=== PATIENT | male | born 1970 | race African-American/Black ===

== ENCOUNTER 2017-07-15 12:59 | Emergency (ER) | payer OTHER ==
[2017-07-15] MEDS ORDERED: Acetaminophen TAB* 325 MG PO ONE (14:09)
[2017-07-15] MEDS ORDERED: Sulfamethox/Trimethoprim DS 800/160* TAB PO ONE (14:20)
--- NOTE | 2017-07-15 14:55 | ED ---
Lower Extremity - HPI Summary HPI Summary: Patient here with right lower extremity pain and swelling times the past few days. He reports he was doing plyometric exercises on a cement step when he slipped and scraped his right garvin. He washed this with soap and water and has been applying bacitracin however his leg is become red, swollen, warm to touch and painful in the days to follow. He admits to scant purulent drainage from the wound area at times. Denies any cultures at this time. He was started on Keflex through medical today but has not taken a dose yet. He denies history of MRSA however resides at [facility]. Immunizations are up-to-date. He has not had anything for pain today - since he is allergic to aspirin, he is requesting acetaminophen. He is still able to ambulate and has a good pulse. Denies fevers, chills, nausea, vomiting, diarrhea. - History of Current Complaint Hx Obtained From: Patient Pain Intensity: 7 <Em Hennessy - Last Filed: 07/15/17 15:34> <Hebert Garcia - Last Filed: 07/16/17 08:38> - History of Current Complaint Chief Complaint: EDExtremityLower Stated Complaint: RT LEG ISSUE Time Seen by Provider: 07/15/17 13:32 - Allergies/Home Medications Allergies/Adverse Reactions: Allergies Allergy/AdvReac Type Severity Reaction Status Date / Time aspirin Allergy Unknown Verified 07/15/17 13:01 Reaction Details Penicillins Allergy Unknown Verified 07/15/17 13:01 Reaction Details PMH/Surg Hx/FS Hx/Imm Hx Previously Healthy: Yes Endocrine/Hematology History: Denies: Hx Anticoagulant Therapy, Hx Blood Disorders, Hx Diabetes Cardiovascular History: Denies: Hx Peripheral Vascular Disease - Immunization History Immunizations Up to Date: Yes Infectious Disease History: No Infectious Disease History: Denies: Hx of Known/Suspected MRSA, Traveled Outside the [place] in Last 30 Days - Social History Occupation: Unemployed Lives: Dormitory/Roommates - [facility] Alcohol Use: None Hx Substance Use: No Substance Use Type: Reports: None Hx Tobacco Use: Yes - not currently Smoking Status (MU): Former Smoker <Em Hennessy - Last Filed: 07/15/17 15:34> Review of Systems Constitutional: Negative Cardiovascular: Negative Respiratory: Negative Gastrointestinal: Negative Positive: no symptoms reported Positive: Myalgia, Edema Skin: Other - wound/erythema Rt LE Neurological: Negative Psychological: Normal All Other Systems Reviewed And Are Negative: Yes <Em Hennessy - Last Filed: 07/15/17 15:34> Physical Exam Triage Information Reviewed: Yes Vital Signs On Initial Exam: Initial Vitals Temp Pulse Resp BP Pulse Ox 97.6 F 71 18 154/87 99 07/15/17 13:01 07/15/17 13:01 07/15/17 13:01 07/15/17 13:01 07/15/17 13:01 Vital Signs Reviewed: Yes Appearance: Positive: Well-Appearing, No Pain Distress - at rest, Well-Nourished Skin: Positive: Warm, Skin Color Reflects Adequate Perfusion, Dry - Superficial scab over right anterior tibia in the tibial tuberosity region surrounding tissue is warm to touch, erythematous and tender -edema is most noticeable around the lateral malleolus; calf and popliteal space or also tender to palpation Head/Face: Positive: Normal Head/Face Inspection Eyes: Positive: EOMI ENT: Positive: Hearing grossly normal Respiratory/Lung Sounds: Positive: Breath Sounds Present Cardiovascular: Positive: Pulses are Symmetrical in both Upper and Lower Extremities, Leg Edema Right Musculoskeletal: Positive: Normal, Strength/ROM Intact Neurological: Positive: Normal, Sensory/Motor Intact, Alert, Oriented to Person Place, Time, CN Intact II-III Psychiatric: Positive: Normal <Em Hennessy - Last Filed: 07/15/17 15:34> Vital Signs On Initial Exam: Initial Vitals Temp Pulse Resp BP Pulse Ox 97.6 F 71 18 154/87 99 07/15/17 13:01 07/15/17 13:01 07/15/17 13:01 07/15/17 13:01 07/15/17 13:01 <Hebert Garcia - Last Filed: 07/16/17 08:38> Diagnostics - Vital Signs Vital Signs Temp Pulse Resp BP Pulse Ox 07/15/17 13:01 97.6 F 71 18 154/87 99 <Em Hennessy - Last Filed: 07/15/17 15:34> - Vital Signs Vital Signs Temp Pulse Resp BP Pulse Ox 07/15/17 15:49 98.1 F 72 16 140/58 99 07/15/17 13:34 67 146/81 96 07/15/17 13:32 67 97 07/15/17 13:01 97.6 F 71 18 154/87 99 <Hebert Garcia - Last Filed: 07/16/17 08:38> Lower Extremity Course/Dx <GerhardEm - Last Filed: 07/15/17 15:34> <Hebert Garcia - Last Filed: 07/16/17 08:38> - Diagnoses Provider Diagnoses: Cellulitis of right leg Discharge - Sign-Out/Discharge Documenting (check all that apply): Discharge/Admit/Transfer - Billing Disposition and Condition Condition: STABLE Disposition: HOME <GerhardEm doran - Last Filed: 07/15/17 15:34> - Sign-Out/Discharge Documenting (check all that apply): Discharge/Admit/Transfer - Billing Disposition and Condition Condition: STABLE Disposition: HOME <Hebert Garcia - Last Filed: 07/16/17 08:38> - Discharge Plan Condition: Stable Disposition: HOME Prescriptions: Sulfamethox/Trimethoprim DS* [Bactrim DS 800/160 TAB*] 1 tab PO BID #19 tab Patient Education Materials: Cellulitis (ED) Referrals: Mary GORDON,Kellen Pete [Primary Care Provider] - Additional Instructions: You do not appear to have a DVT. You do however. To have cellulitis. Your wound was cultured and Bactrim was added tear antibiotic regimen. He reported urine is taking Keflex. Complete the course of both of these follow-up with her medical staff as needed. He may apply warm compresses to your wound to encouraged to drain. Inquire with medical team for systems. Otherwise keep leg rested and elevated to reduce inflammation. He may continue acetaminophen 650mg every 6 hours as needed for pain. *If you develop fevers, chills, nausea, vomiting, streaking of redness up your thigh anterior groin, worsening of swelling, contact her medical staff.
--- NOTE | 2017-07-15 15:27 | RAD ---
HISTORY: infected wound COMPARISONS: None relevant TECHNIQUE: Multiple transverse and longitudinal ultrasound images were obtained of the right lower extremity from the level of the common femoral vein inferiorly through to the infrapopliteal veins using grayscale, color Doppler, and spectral Doppler imaging with and without compression and with augmentation. Comparison images were obtained of the contralateral common femoral vein. FINDINGS: VEINS: The venous system of the right lower extremity is compressible throughout its course, with normal flow on color Doppler imaging and normal response to augmentation on spectral Doppler imaging. SOFT TISSUES: Unremarkable. OTHER FINDINGS: None. IMPRESSION: NO RIGHT LOWER EXTREMITY DEEP VEIN THROMBOSIS
[2017-07-15 15:50] VITALS: BP 140/58
--- NOTE | 2017-07-17 07:14 | PN ---
Progress Note - Progress Note Date of Service: 07/15/17 Note: Patient wound culture grew Staphylococcus aureus Patient was placed on Bactrim prior to discharge We'll await sensitivities
--- NOTE | 2017-07-18 10:46 | ED ---
Progress - Progress Note Progress Note: Final wound culture results reveal Bactrim is effective against organism. No change in treatment at this time. Course/Dx - Diagnoses Provider Diagnoses: Cellulitis of right leg Discharge - Sign-Out/Discharge Documenting (check all that apply): Post-Discharge Follow Up - Discharge Plan Condition: Stable Disposition: HOME Prescriptions: Sulfamethox/Trimethoprim DS* [Bactrim DS 800/160 TAB*] 1 tab PO BID #19 tab Patient Education Materials: Cellulitis (ED) Referrals: Mary GORDON,Kellen Pete [Primary Care Provider] - Additional Instructions: You do not appear to have a DVT. You do however. To have cellulitis. Your wound was cultured and Bactrim was added tear antibiotic regimen. He reported urine is taking Keflex. Complete the course of both of these follow-up with her medical staff as needed. He may apply warm compresses to your wound to encouraged to drain. Inquire with medical team for systems. Otherwise keep leg rested and elevated to reduce inflammation. He may continue acetaminophen 650mg every 6 hours as needed for pain. *If you develop fevers, chills, nausea, vomiting, streaking of redness up your thigh anterior groin, worsening of swelling, contact her medical staff. - Billing Disposition and Condition Condition: STABLE Disposition: HOME
== END 2017-07-15 15:49 | disposition home or self-care (01) ==
LOC: ED 12:59
DX: L03.115 Cellulitis of right lower limb (principal); R60.9 Edema, unspecified; Z87.891 Personal history of nicotine dependence
CPT/HCPCS: 87070; 87077; 87186; 87205; 87640; 87641; 99282; A9270-GY